=== PATIENT | male | born 2000 | race Caucasian/White ===

== ENCOUNTER 2022-06-16 18:55 | Emergency (ER) | payer MEDICAID ==
[~2022-06-16] VITALS: Ht 193 cm; Wt 122.7 kg
[2022-06-16 19:09] VITALS: BP 131/69
[2022-06-16] MEDS ORDERED: TETanus/Pertussis (Acell)/Diphther VAC/PF (Tdap-Adult) 0.5ml syringe IMVAC ONE (21:50)
[2022-06-16] MEDS ORDERED: tetanus & diphtheria toxoid (Td) vaccine 0.5ml IMVAC ONE (21:50)
== END 2022-06-16 22:48 | disposition home or self-care (01) ==
LOC: ER 18:56
DX: S81.812A Laceration without foreign body, left lower leg, initial encounter (principal); X58.XXXA Exposure to other specified factors, initial encounter; Y93.89 Activity, other specified; Y92.89 Other specified places as the place of occurrence of the external cause; Y99.8 Other external cause status
CPT/HCPCS: 12002; 90471; 90715; 99283; J7030; 99282; A6449